=== PATIENT | female | born 1980 ===

== ENCOUNTER 2023-01-08 09:03 | Outpatient (AMB) | payer OTHER, SELFPAY ==
--- NOTE | 2023-01-08 10:12 | MHC.OFFWIV ---
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 Patient was bit by a cat on all the 12/19/2022. She has a concrete technician. She is up-to-date on rabies immunization. Physical Exam Extrem Other: Right leg: Puncture dougherty over the front of the leg. Surrounding erythema. Minimal tenderness. Assessment & Plan Assessment & Plan (1) Cellulitis of right leg: Code(s): L03.115 - Cellulitis of right lower limb Plan: Patient is up-to-date on all immunizations including tetanus and rabies. Antibiotics have been called in. Keep the leg elevated. Coding Level of Care Code Est Pt Level 3 (29015) Diagnoses Cellulitis of right leg L03.115
[2023-01-08 10:13] VITALS: BP 114/78; PULSE 93
== END 2023-01-08 10:31 | disposition home or self-care (01) ==
PROVIDERS: Visit Provider Internal Medicine
DX: L03.115 Cellulitis of right lower limb (principal)
CPT/HCPCS: 99203

== ENCOUNTER 2023-06-21 12:03 | Outpatient (AMB) | payer OTHER, SELFPAY ==
--- NOTE | 2023-06-21 12:03 | AM.OFFWIN_ITS ---
Intake Vital Signs 06/21/23 12:22 Height 5 ft 6 in Weight 262 lb 4 oz BMI 42.3 BP 128/86 Blood Pressure Location Rt brachial Position Sitting Pulse 110 H Pulse Source Pulse Oximeter Temp 97.6 F Temp Source Oral Pulse Oximetry (%) 100 Oxygen Delivery Method Room Air Intake Visit Reasons: EST/sore throat ([phone]) Intake Note: pt is here today for sore throat started 2 days ago Patient Tobacco Use Status: Never used Tobacco Allergies No Known Allergies Allergy (Verified 06/21/23 12:16) Do you need a note to return to daycare/school/sports/work: No HPI HPI Comments History of Present Illness Details the patient presents to urgent care for evaluation of sore throat and URI symptoms times several days. She reports that the sore throat has been bad for 2 days and her mother looked in her throat and said it looked red with white spots. Patient was concerned about strep pharyngitis. no vomiting fever chills PFSH Social History Patient Tobacco Use Status: Never used Tobacco Review of Systems Const Denies increased appetite Card Denies radiating jaw, neck or arm pain and Denies dyspnea Resp Denies hemoptysis and Denies dyspnea Physical Exam Vital Signs: Last Vital Signs Temp 97.6 F 06/21/23 12:22 Pulse 110 H 06/21/23 12:22 BP 128/86 06/21/23 12:22 Pulse Ox 100 06/21/23 12:22 Oxygen Delivery Method Room Air 06/21/23 12:22 BMI result Body Mass Index 42.3 Const General: healthy appearing and no acute distress HEENT Head: Yes normal to inspection Ears: external ears normal Throat: Yes posterior oropharynx normal Chest Chest palpation & inspection: normal inspection of the chest Resp Effort & Inspection: normal respiratory effort and able to speak in complete sentences Results AMB Rapid Strep 2 AMB Rapid Strep Negative Last Edit by Cholo Morales CMA on 06/21/23 12 :48 Results Reviewed Results Reviewed: Laboratory Last Values Strep Scn [facility] Negative 06/21/23 12:47 Assessment & Plan Assessment & Plan (1) URI (upper respiratory infection): Code(s): J06.9 - Acute upper respiratory infection, unspecified Plan symptoms consistent with viral URI. Rapid strep test negative. Patient was advised no antibiotics are indicated or warranted at this time. Warm saltwater gargles tea with honey, ibuprofen and Tylenol. Orders: Orders AMB Rapid Strep Screen Today Z13.9 - Encounter for screening, unspecified Coding Level of Care Code Est Pt Level 3 (26870) Diagnoses URI (upper respiratory infection) J06.9
[2023-06-21 12:22] VITALS: BP 128/86; PULSE 110; TEMP 36.4; O2SAT 100; BMI 42.3
== END 2023-06-21 13:28 | disposition home or self-care (01) ==
PROVIDERS: Visit Provider Emergency Medicine
DX: J06.9 Acute upper respiratory infection, unspecified (principal)
CPT/HCPCS: 87880; 99213